=== PATIENT | female | born 2000 | race Caucasian/White ===

== ENCOUNTER → 2023-09-26 09:44 | Outpatient (REF) | payer BC, SELFPAY ==
[2023-09-26 11:11] LABS: % Eosinophils 2.3 % (0-6); % Immature Granulocytes 0.2 % (0-0.5); % Monocytes 5.5 % (1.7-9.3); Absolute Basophils 0.1 10^3/uL (0-0.2); Absolute Eosinophils 0.1 10^3/uL (0-0.7); Absolute Lymphocytes 1.6 10^3/uL (1.2-3.4); Absolute Monocytes 0.3 10^3/uL (0.1-0.6); Hematocrit 39.8 % (37.0-47.0); Hemoglobin 13.7 g/dL (12.0-16.0); Mean Corp Hgb Conc. 34.4 g/dL (33.0-37.0); Mean Corpuscular Hgb 30.5 pg (27.0-31.0); Mean Corpuscular Volume 88.6 fL (81.0-99.0); Mean Platelet Volume 9.9 fL (7.4-10.4); Nucleated Red Blood Cells % 0 %; Platelet Count 220 10^3/uL (130-400); Red Blood Cell Count 4.49 10^6/uL (4.20-5.40); Red Cell Dist. Width 11.9 % (11.5-14.5); White Blood Cell Count 5.1 10^3/uL (4.8-10.8)
[2023-09-26 12:04] LABS: Rubella Positive
[2023-09-26 13:21] LABS: ALT (SGPT) 16 U/L (0-35); AST (SGOT) 31 U/L (14-36); Albumin 4.7 g/dl (3.5-5.0); Alkaline Phosphatase 44 U/L (38-126); Blood Urea Nitrogen 11 mg/dl (7-17); Calcium 9.6 mg/dl (8.4-10.2); Carbon Dioxide 25 mmol/L (22-30); Chloride 104 mmol/L (98-107); Glucose 82 mg/dl (70-99); HDL Cholesterol 73 mg/dl; LDL Cholesterol, Calculated 84 mg/dl; Potassium 4.6 mmol/L (3.5-5.1); Sodium 138 mmol/L (135-145); Total Bilirubin 0.6 mg/dl (0.2-1.3); Total Cholesterol 179 mg/dl (50-199); Total Protein 6.8 g/dl (6.3-8.2); Triglyceride 113 mg/dl (10-149); Very Low Density Lipoprotein 22 mg/dl (0-30); eGFR > 60.00
[2023-09-26 13:50] LABS: Hepatitis B Surface Antigen Negative (Negative)
[2023-09-26 13:52] LABS: TSH Reflex To Free T4 2.66 uIU/ml (0.47-4.68)
== END ==
LOC: REG 09:44
PROVIDERS: ATTENDING PHYSICIAN Internal Medicine
DX: R53.83 Other fatigue (principal); Z00.00 Encounter for general adult medical examination without abnormal findings
CPT/HCPCS: 36415; 80053; 80061; 84443; 85025; 86480; 86735; 86762; 86765; 86787; 87340

== ENCOUNTER → 2023-10-30 13:06 | Outpatient (REF) | payer BC, SELFPAY ==
[2023-10-30 18:53] LABS: Hepatitis B Surface Antibody Negative
== END ==
LOC: REG 13:06
PROVIDERS: ATTENDING PHYSICIAN Internal Medicine
DX: Z01.84 Encounter for antibody response examination (principal)
CPT/HCPCS: 36415; 86706

== ENCOUNTER → 2024-02-06 12:09 | Outpatient (REF) | payer BC, SELFPAY ==
[2024-02-06 12:45] LABS: % Eosinophils 1.7 % (0-6); % Monocytes 5.4 % (1.7-9.3); % Neutrophils 55.9 % (42.2-75.2); Absolute Basophils 0.1 10^3/uL (0-0.2); Absolute Eosinophils 0.1 10^3/uL (0-0.7); Absolute Lymphocytes 1.7 10^3/uL (1.2-3.4); Absolute Monocytes 0.3 10^3/uL (0.1-0.6); Absolute Neutrophils 2.7 10^3/uL (1.4-6.5); Hematocrit 38.8 % (37.0-47.0); Hemoglobin 13.2 g/dL (12.0-16.0); Mean Corpuscular Hgb 29.9 pg (27.0-31.0); Mean Platelet Volume 9.5 fL (7.4-10.4); Nucleated Red Blood Cells % 0 %; Platelet Count 214 10^3/uL (130-400); Red Blood Cell Count 4.41 10^6/uL (4.20-5.40); Red Cell Dist. Width 12.2 % (11.5-14.5); White Blood Cell Count 4.8 10^3/uL (4.8-10.8)
[2024-02-06 14:20] LABS: ALT (SGPT) 16 U/L (0-35); AST (SGOT) 24 U/L (14-36); Albumin 4.7 g/dl (3.5-5.0); Alkaline Phosphatase 29 U/L (38-126); Blood Urea Nitrogen 11 mg/dl (7-17); Calcium 9.3 mg/dl (8.4-10.2); Carbon Dioxide 24 mmol/L (22-30); Chloride 105 mmol/L (98-107); Glucose 88 mg/dl (70-99); Potassium 4.6 mmol/L (3.5-5.1); Sodium 140 mmol/L (135-145); Total Bilirubin 0.7 mg/dl (0.2-1.3); eGFR > 60.00
== END ==
LOC: REG 12:09
PROVIDERS: ATTENDING PHYSICIAN Nurse Practitioner Adult Health; FAMILY PHYSICIAN Internal Medicine
DX: R11.10 Vomiting, unspecified (principal); R19.7 Diarrhea, unspecified
CPT/HCPCS: 36415; 80053; 85025

== ENCOUNTER → 2024-06-15 13:48 | Outpatient (REF) | payer BC, SELFPAY | LOC: RCS 13:48 | PROVIDERS: FAMILY PHYSICIAN Internal Medicine | DX: F90.0 Attention-deficit hyperactivity disorder, predominantly inattentive type (principal) | CPT/HCPCS: 93005 ==

== ENCOUNTER 2024-07-01 09:04 | Emergency (ER) | payer BC, SELFPAY ==
[2024-07-01 09:06] VITALS: BP 124/76
[2024-07-01] MEDS: ZOFRAN 4 MG IV (10:06)
[2024-07-01] MEDS: NSS 1000 IV (10:07)
[2024-07-01 10:10] VITALS: BP 109/72
--- NOTE | 2024-07-01 10:14 | ED.GENMED ---
History of Present Illness
General
Chief Complaint: Abdominal Symptoms
Source: patient
Time Seen by Provider: 07/01/24 09:38
History of Present Illness
History of Present Illness:
23-year-old female presenting to the emergency department for evaluation of persistent nausea and vomiting over the last 12 to 24 hours, while driving to her clinical site had a syncopal event during an episode of emesis which is what prompted her
to come to the ER for further evaluation. Patient does note that for the last few weeks she has also had some loose stool which is not normal but also reports that she was recently started on Effexor, Ritalin and propranolol which she states is
what seems to her prompted all of the GI symptoms. Patient denies any abdominal pain, urinary symptoms, fevers, recent travel, known sick contacts or recent antibiotics. 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
clinicals prior to starting work so it is possible she came into contact with a sick patient. Social history noncontributory otherwise.
Past History
Past History
ED Past Medical History: Psychiatric
ED Past Surgical History: Tonsilectomy
Social History
Tobacco: Non-smoker
Alcohol: Occasional
Drug: Marijuana
Personal: Single
Living: with family
Employment: Student
Review of Systems
Review of Systems
All Other Systems: ROS reviewed and negative except as documented in HPI and ROS
Phy Exam
Physical Exam
Physical Exam:
GENERAL: Alert , in no apparent distress
EYE: clear conjunctiva b/l
HEAD: NCAT
ENT: mmm.
CARDIAC: Regular rate and rhythm .
LUNGS: Clear breath sounds bilaterally, no acute respiratory distress, no wheezes/rales/rhonchi
ABDOMEN: Soft, without focal tenderness, no r/g, no cvat
NEUROLOGICAL: Alert and oriented
SKIN: Warm and dry, skin intact.
MUSCULOSKELETAL: No edema, well perfused.
PSYCH: Normal and appropriate interaction.
Scores
Heart Failure Risk
Heart Failure Risk Score: Not Applicable
Heart Score for Chest Pain Patients
STEMI patient?: Not applicable
Withdrawal Assessment of Alcohol
Withdrawal Assessment Completed?: Not applicable
Course
Orders/Labs/Results
Orders:
Orders
07/01/24 09:11
Electrocardiogram (*1) Urgent
Reason for Study: Chest Pain
EKG- Treatment ONCE
07/01/24 09:52
0.9% Sodium Chloride 1000 ml [Nss] 1,000 ml IV BOLUS
Ondansetron Injectable [Zofran] 4 mg IV NOW STA
Test Result ONCE
07/01/24 10:10
Complete Blood Count/With Diff Urgent
Comprehensive Metabolic Panel Urgent
HCG, Serum Qualitative Screen Urgent
Lipase Urgent
07/01/24 11:33
Urinalysis Reflex To Culture Urgent
Date Specimen was Collected: 07/01/24
Time Specimen was Collected: 11:30
Urine Microscopic Reflex Cult Urgent
Abnormal Lab Results
07/01/24 07/01/24
10:10 11:33
Total Bilirubin 1.6 H mg/dl
(0.2-1.3)
Urine Ketones 3+ A
(Negative)
Urine Bacteria (Reflex) Few A
(Negative)
Urine Albumin (Reflex) 1+ A
(Neg - Trace)
07/01/24 10:10
07/01/24 10:10
Vital Signs
Initial and Last Documented VS:
Initial Vital Signs
Temp Pulse Resp BP Pulse Ox
98.3 F 61 16 124/76 100
07/01/24 09:06 07/01/24 09:06 07/01/24 09:06 07/01/24 09:06 07/01/24 09:06
Last Documented Vital Signs
Temp Pulse Resp BP Pulse Ox
98.3 F 54 12 115/64 99
07/01/24 09:06 07/01/24 11:15 07/01/24 11:15 07/01/24 11:04 07/01/24 11:15
MDM/Problems Addressed
Differential Diagnosis Includes:
Vagal event, orthostasis, dehydration, medication side effects, gastroenteritis, GERD, electrolyte derangement
MDM/Problems Addressed:
23-year-old female presenting to the ER for evaluation of GI upset with loose stool over the last few weeks since starting new medications but over the last 12 to 24 hours has had more nausea and vomiting, had syncopal episode prior to arrival but
states now currently feels quite well. Exam reassuring, abdomen soft and nontender. Patient overall very well-appearing. Will check labs, treat with fluids and Zofran. Reassessment following.
*Pulse Oximetry
Patient hypoxic: no
*EKG
Heart Rate: 63
Rate: normal
Rhythm: sinus arrhythmia
Ischemia: no ischemia
*Electronic Masking System Operator Interpretation
Rate: normal
Rhythm: sinus arrhythmia
*Critical Care Note
Total Time (30-74mins, 75-104mins- exclusive of procedures): Not Applicable
Patient Management
Escalation/DeEscalation of care consider admission/obs:
Patient feeling significantly better following medications and fluids. She feels well enough to be discharged home. Prescription for Zofran sent to pharmacy. Advised brat diet. Stable for discharge and aware of return precautions.
ED Attending Note
-
Portions of this chart may have been created with voice recognition software.� Occasional wrong word or��sound alike� substitutions may have occurred due to the inherent limitations of voice recognition software.
Discharge Plan
Departure
Patient Disposition: Home (Routine Discharge)
Date of Disposition: 07/01/24
Time of Disposition: 11:23
Patient with high blood pressure during this ER visit?: No
Discharge Problem:
Nausea and vomiting, Medication side effect
Instructions: Nausea and Vomiting, Adult (DC)
Prescriptions:
New
ondansetron 4 mg tablet,disintegrating
4 mg PO TIDPRN PRN (Reason: nausea/vomiting) Qty: 10 0RF
Referrals:
Kenyatta Trejo NP [Family Provider] -
Stand Alone Forms: Back to School
Interventions
Interventions:
*Risk Screen - Suicide Last Done: 07/01/24 09:06
*General Assessment Last Done: 07/01/24 09:06
*Neglect/Abuse Screening Last Done: 07/01/24 09:06
*ED- Fall Risk Assessment Last Done: 07/01/24 10:22
*ED COVID-19 Vaccine History Last Done: 07/01/24 10:22
*Nursing Disposition Last Done: 07/01/24 11:45
EK-Gokghc-Xsriidbcxh Assessment Last Done: 07/01/24 10:21
Discharge Date and Time
Discharge Date/Time: 07/01/24 11:46
Print Language: CHILEAN
[2024-07-01 10:21] VITALS: BP 109/72; BMI 19.9
[2024-07-01 10:21] LABS: % Eosinophils 1.7 % (0-6); % Immature Granulocytes 0.3 % (0-0.5); % Lymphocytes 28.8 % (20.5-51.1); % Monocytes 6.7 % (1.7-9.3); % Neutrophils 61.5 % (42.2-75.2); Absolute Basophils 0.1 10^3/uL (0-0.2); Absolute Eosinophils 0.1 10^3/uL (0-0.7); Absolute Lymphocytes 2.1 10^3/uL (1.2-3.4); Absolute Monocytes 0.5 10^3/uL (0.1-0.6); Absolute Neutrophils 4.4 10^3/uL (1.4-6.5); Hematocrit 39.3 % (37.0-47.0); Hemoglobin 13.7 g/dL (12.0-16.0); Mean Corp Hgb Conc. 34.9 g/dL (33.0-37.0); Mean Corpuscular Hgb 30.5 pg (27.0-31.0); Mean Corpuscular Volume 87.5 fL (81.0-99.0); Mean Platelet Volume 9.4 fL (7.4-10.4); Nucleated Red Blood Cells % 0 %; Platelet Count 234 10^3/uL (130-400); Red Blood Cell Count 4.49 10^6/uL (4.20-5.40); Red Cell Dist. Width 12.5 % (11.5-14.5); White Blood Cell Count 7.2 10^3/uL (4.8-10.8)
[2024-07-01 10:38] LABS: HCG, Serum Qualitative Screen Negative
[2024-07-01 10:43] LABS: ALT (SGPT) 18 U/L (0-35); AST (SGOT) 29 U/L (14-36); Albumin 4.8 g/dl (3.5-5.0); Alkaline Phosphatase 50 U/L (38-126); Blood Urea Nitrogen 16 mg/dl (7-17); Calcium 9.9 mg/dl (8.4-10.2); Carbon Dioxide 22 mmol/L (22-30); Chloride 104 mmol/L (98-107); Estimated Creatinine Clearance 121 ml/min; Glucose 79 mg/dl (70-99); Lipase 99 U/L (23-300); Sodium 139 mmol/L (135-145); Total Bilirubin 1.6 mg/dl (0.2-1.3); eGFR > 60.00
[2024-07-01 11:04] VITALS: BP 115/64
[2024-07-01 11:56] LABS: Urine Albumin 1+ (Neg - Trace); Urine Bilirubin Negative (Negative); Urine Character Clear (Clear); Urine Color Yellow; Urine Glucose Negative (Negative); Urine Ketone 3+ (Negative); Urine Leukocyte Negative (Negative); Urine Nitrite Negative (Negative); Urine Occult Blood Negative (Negative); Urine Specific Gravity 1.025 (<1.030); Urine Urobilinogen Negative (Neg - 1+)
[2024-07-01 12:13] LABS: Urine Bacteria Few (Negative); Urine Mucus Moderate; Urine Red Blood Cell 0-2 /HPF (0-2); Urine White Cell 0-2 /HPF (0-5)
== END 2024-07-01 11:46 | disposition home or self-care (01) ==
LOC: EMR 09:04
PROVIDERS: Physician Assistant Medical; EMERGENCY PHYSICIAN Emergency Medicine; FAMILY PHYSICIAN Internal Medicine
DX: R55 Syncope and collapse (principal); R11.2 Nausea with vomiting, unspecified; R19.7 Diarrhea, unspecified; T50.995A Adverse effect of other drugs, medicaments and biological substances, initial encounter
CPT/HCPCS: 99284; 96374; 96361; 80053; 81003; 81015; 83690; 84703; 85025; 93005

== ENCOUNTER → 2024-11-02 11:46 | Outpatient (REF) | payer BC, SELFPAY ==
[2024-11-02 12:28] LABS: Hematocrit 38.8 % (37.0-47.0); Hemoglobin 13.1 g/dL (12.0-16.0); Mean Corp Hgb Conc. 33.8 g/dL (33.0-37.0); Mean Corpuscular Volume 91.7 fL (81.0-99.0); Nucleated Red Blood Cells % 0 %; Platelet Count 216 10^3/uL (130-400); Red Cell Dist. Width 11.8 % (11.5-14.5)
[2024-11-02 12:57] LABS: HCG, Serum Qualitative Screen Negative
[2024-11-02 13:07] LABS: ALT (SGPT) 12 U/L (0-35); AST (SGOT) 19 U/L (14-36); Albumin 4.6 g/dl (3.5-5.0); Alkaline Phosphatase 46 U/L (38-126); Blood Urea Nitrogen 11 mg/dl (7-17); Calcium 10.0 mg/dl (8.4-10.2); Carbon Dioxide 25 mmol/L (22-30); Chloride 106 mmol/L (98-107); Glucose 89 mg/dl (70-99); Potassium 4.3 mmol/L (3.5-5.1); Sodium 137 mmol/L (135-145); Total Protein 6.7 g/dl (6.3-8.2); eGFR > 60.00
== END ==
LOC: REG 11:46
PROVIDERS: ATTENDING PHYSICIAN Nurse Practitioner Adult Health; FAMILY PHYSICIAN Internal Medicine
DX: R51.9 Headache, unspecified (principal); R11.0 Nausea
CPT/HCPCS: 36415; 80053; 84703; 85025

== ENCOUNTER 2025-01-16 15:58 | Emergency (ER) | payer BC, SELFPAY ==
[2025-01-16 16:13] VITALS: BP 113/81
[2025-01-16 16:35] LABS: Hematocrit 39.8 % (37.0-47.0); Hemoglobin 13.1 g/dL (12.0-16.0); Mean Corp Hgb Conc. 32.9 g/dL (33.0-37.0); Mean Corpuscular Volume 90.2 fL (81.0-99.0); Nucleated Red Blood Cells % 0 %; Platelet Count 238 10^3/uL (130-400); Red Cell Dist. Width 11.8 % (11.5-14.5)
[2025-01-16 16:41] LABS: HCG, Serum Qualitative Screen Negative
[2025-01-16 16:50] LABS: ALT (SGPT) 18 U/L (0-35); AST (SGOT) 26 U/L (14-36); Albumin 4.8 g/dl (3.5-5.0); Alkaline Phosphatase 43 U/L (38-126); Blood Urea Nitrogen 11 mg/dl (7-17); Calcium 9.6 mg/dl (8.4-10.2); Carbon Dioxide 26 mmol/L (22-30); Chloride 105 mmol/L (98-107); Glucose 103 mg/dl (70-99); Lipase 166 U/L (23-300); Potassium 4.0 mmol/L (3.5-5.1); Sodium 137 mmol/L (135-145); Total Protein 7.1 g/dl (6.3-8.2); eGFR > 60.00
--- NOTE | 2025-01-16 17:25 | ED.GENMED ---
History of Present Illness
<Lynnette Lino MD, Resident - Last Filed: 01/17/25 00:21>
General
Chief Complaint: Rectal Bleeding
Source: patient
Time Seen by Provider: 01/16/25 16:33
History of Present Illness
History of Present Illness:
24-year-old female with past medical history of anxiety/depression presents to the ER for bloody diarrhea. She has been having on and off diarrhea for the past month. This , the diarrhea increased to 3-4 times a day with associated lower
abdominal cramping. This afternoon around 1:00, she had bloody diarrhea. The blood was bright red. She could not tell the volume. It was not dripping afterward. She denies any anal pain or itching. She does endorse lower abdominal cramping over
the last 4 days. The pain is different than menstrual cramping. She denies any nausea, vomiting over the last few days however she has had 1 episode of nausea with vomiting in the last month. She denies any fevers, chills, sore throat, runny
nose, recent sick contacts, recent antibiotic use, recent travel, recent exposure to dirty water, lightheadedness or dizziness. She has had an itchy rash that developed on her back over the last month. She has dealt with on and off diarrhea in the
past in high school but never bloody. She denies any weight loss. Her cousin has Crohn's disease.
She does note her last menstrual period was November 11. She took a test and it was negative. She also endorses suicidal ideation over the past few days however denies any plans and states she would never actually hurt herself. She was
previously on medication for mental health however currently not on any.
<Kenyatta Benson MD - Last Filed: 01/16/25 18:11>
General
Exam Limitations: none
Nursing documentation reviewed up to this point in time: agreed with
Past History
<Lynnette Lino MD, Resident - Last Filed: 01/17/25 00:21>
Past History
ED Past Medical History: Psychiatric
ED Past Surgical History: Tonsilectomy
Social History
Tobacco: Vaping
Alcohol: Occasional
Drug: Marijuana
Personal: Single
Living: with family
Employment: Student
Family History
Family History: Other (Cousin Chron's, sister diverticulitis )
Review of Systems
<Lynnette Lino MD, Resident - Last Filed: 01/17/25 00:21>
Review of Systems
Allergies reviewed?: Yes
Constitutional: Reports no symptoms
EENT: Reports no symptoms
Respiratory: Reports no symptoms
Cardiac: Reports no symptoms
ABD/GI: Reports abdominal pain, diarrhea and bloody stools
: Reports no symptoms
Musculoskeletal: Reports no symptoms
Skin: Reports no symptoms
Neurological: Reports no symptoms
Endocrine: Reports no symptoms
<Kenyatta Benson MD - Last Filed: 01/16/25 18:11>
Review of Systems
Psychiatric: Reports depression, anxiety and suicidal (Passive thoughts but no active thoughts or plan)
Phy Exam
<Lynnette Lino MD, Resident - Last Filed: 01/17/25 00:21>
Physical Exam
Physical Exam:
General: Appears to have depressed mood but nontoxic
Head: Atraumatic
ENT: No pharyngeal erythema or lymphadenopathy
Cardiac: Regular S1-S2, no murmurs
Respiratory: Clear breath sounds bilaterally
Abdominal: Tenderness with palpation in right lower and left lower quadrant. No rebound tenderness, no guarding or rigidity. Normal bowel sounds in all 4 quadrants. Nondistended.
Rectal: No external hemorrhoids, heme-occult (-).
Extremities: No peripheral edema
Skin: Clusters of small, itchy papules spread out over back.
Psychiatric Exam
Psychiatric Exam: anxious, depressed and suicidal
Course
<Lynnette Lino MD, Resident - Last Filed: 01/17/25 00:21>
Orders/Labs/Results
Orders:
Orders
01/16/25 16:18
Test Result ONCE
01/16/25 16:25
Type And Crossmatch [Type+Screen] Urgent
C-Reactive Protein Urgent
Comment: ADD ON
Complete Blood Count/With Diff Urgent
Comprehensive Metabolic Panel Urgent
Erythrocyte Sed Rate Urgent
Comment: ADD ON
HCG, Serum Qualitative Screen Urgent
Lactic Acid Urgent
Lipase Urgent
01/16/25 17:22
Add On- LAB Urgent
Tests Added?: ESR, CRP
01/16/25 17:23
CT Abd/pel W Iv And Oral Contr Urgent
Comment:
Reason For Exam: diarrhea 1 month, low ab pain, blood
Iohexol [Omnipaque] See Protocol PO NOW STA
01/16/25 17:24
Crisis Consult Urgent
Reason for Consult: depression
01/16/25 18:03
Celiac Comprehensive Panel Urgent
Abnormal Lab Results
01/16/25
16:25
MCHC 32.9 L g/dL
(33.0-37.0)
Glucose 103 H mg/dl
(70-99)
Total Bilirubin 1.5 H mg/dl
(0.2-1.3)
01/16/25 16:25
01/16/25 16:25
Vital Signs
Initial and Last Documented VS:
Initial Vital Signs
Temp Pulse Resp BP Pulse Ox
98.9 F 77 18 113/81 98
01/16/25 16:13 01/16/25 16:13 01/16/25 16:13 01/16/25 16:13 01/16/25 16:13
Last Documented Vital Signs
Temp Pulse Resp BP Pulse Ox
98.9 F 55 16 106/52 100
01/16/25 16:13 01/16/25 21:23 01/16/25 21:23 01/16/25 21:23 01/16/25 21:23
<Kenyatta Benson MD - Last Filed: 01/16/25 18:11>
Orders/Labs/Results
Orders:
Orders
01/16/25 16:18
Test Result ONCE
01/16/25 16:25
Type And Crossmatch [Type+Screen] Urgent
C-Reactive Protein Urgent
Comment: ADD ON
Complete Blood Count/With Diff Urgent
Comprehensive Metabolic Panel Urgent
Erythrocyte Sed Rate Urgent
Comment: ADD ON
HCG, Serum Qualitative Screen Urgent
Lactic Acid Urgent
Lipase Urgent
01/16/25 17:22
Add On- LAB Urgent
Tests Added?: ESR, CRP
01/16/25 17:23
CT Abd/pel W Iv And Oral Contr Urgent
Comment:
Reason For Exam: diarrhea 1 month, low ab pain, blood
Iohexol [Omnipaque] See Protocol PO NOW STA
01/16/25 17:24
Crisis Consult Urgent
Reason for Consult: depression
01/16/25 18:03
Celiac Comprehensive Panel Urgent
Abnormal Lab Results
01/16/25
16:25
MCHC 32.9 L g/dL
(33.0-37.0)
Glucose 103 H mg/dl
(70-99)
Total Bilirubin 1.5 H mg/dl
(0.2-1.3)
01/16/25 16:25
01/16/25 16:25
Vital Signs
Initial and Last Documented VS:
Initial Vital Signs
Temp Pulse Resp BP Pulse Ox
98.9 F 77 18 113/81 98
01/16/25 16:13 01/16/25 16:13 01/16/25 16:13 01/16/25 16:13 01/16/25 16:13
Last Documented Vital Signs
Temp Pulse Resp BP Pulse Ox
98.9 F 55 16 106/52 100
01/16/25 16:13 01/16/25 21:23 01/16/25 21:23 01/16/25 21:23 01/16/25 21:23
<Lynnette Lino MD, Resident - Last Filed: 01/17/25 00:21>
MDM/Problems Addressed
Differential Diagnosis Includes:
Irritable bowel disease, inflammatory bowel disease, celiac's, diverticulitis, viral colitis, bacterial colitis, allergic reaction,
MDM/Problems Addressed:
CT abdomen pelvis as diarrhea has been ongoing for a month for possible colitis. Include celiac panel, ESR, CRP to evaluate for inflammatory bowel disease or celiac's. test is negative. WBC is 6.5 which is reassuring there is no acute
infection. Hemoglobin is stable at 13.1 and vitals are stable which is reassuring for no acute bleed. T. bili is 1.5, other LFTs are within normal limits. She did have an elevated T. bili of 1.6 on a 07/01/2024 when she was in the hospital for GI
upset. She was ultimately discharged because she felt well enough to go home.
Crisis consulted for endorsing suicidal ideation. She has no plan of action. Father is the room with her and will stay with her for the duration of her stay. One-to-one not felt to be required at this time due to this. CT revealed mild periportal
edema which is nonspecific although can be seen with IV rehydration. Consider correlation with lab values for possible hepatitis.
Considering no acute etiology noted on CT and lab values within normal limits, will discharge patient with recommendations to follow-up with GI for further evaluation. Patient was unable to give a stool sample during this time.
Crisis also came and say the patient. They established a safety plan with the patient and gave her outpatient resources for intensive outpatient therapy. She said it was helpful.
Chronic conditions affecting care: Psychiatric illness
Acute Exacerbation and/or Progression of Chronic Illness: Psychiatric illness
<Lynnette Lino MD, Resident - Last Filed: 01/17/25 00:21>
*Pulse Oximetry
SaO2: 98
Oxygen Mode of Delivery: Room air
Patient hypoxic: no
*Critical Care Note
Total Time (30-74mins, 75-104mins- exclusive of procedures): Not Applicable
Data Reviewed
Review of Other/Old Records Reveals: Labs (T. bili 1.6 on 07/01/2024) and Radiology Studies (Thyroid ultrasound 11/24/2020 no solid thyroid nodules)
Source: patient and records
ED Attending Note
<Lynnette Lino MD, Resident - Last Filed: 01/17/25 00:21>
-
Portions of this chart may have been created with voice recognition software.� Occasional wrong word or��sound alike� substitutions may have occurred due to the inherent limitations of voice recognition software.
<Kenyatta Benson MD - Last Filed: 01/16/25 18:11>
ED Attending Note
I performed a history and physical exam of patient and discussed management with resident, I reviewed resident's note and agree with documented findings and plan of care.: Yes
ED Attending Note:
Patient appears well perfused on exam and comfortable. Patient is breathing comfortably. Abdomen is nondistended.
6:10 PM I spoke to Kumar birch who reports that they established a safety plan with the patient and gave her outpatient resources for intensive outpatient therapy
Discharge Plan
Departure
Patient Disposition: Home (Routine Discharge)
Date of Disposition: 01/16/25
Time of Disposition: 21:17
Patient with high blood pressure during this ER visit?: No
Discharge Problem:
Bloody diarrhea, Abdominal pain
Instructions: Abdominal Pain
Prescriptions:
No Action
ondansetron 4 mg tablet,disintegrating
4 mg PO TIDPRN PRN (Reason: nausea/vomiting) Qty: 10 0RF
Referrals:
Kenyatta Trejo, ENVIRONMENTAL PROTECTION INSPECTOR [Family Provider, Internal Medicine]
Rossy Thompson DO [Active, Gastroenterology]
Activity Restrictions/Additional Instructions:
Please follow up with GI for additional evaluation. If symptoms significantly worsen, please reach out to your PCP or come back to the ER.
Interventions
Interventions:
*Risk Screen - Suicide Last Done: 01/16/25 16:16
*General Assessment Last Done: 01/16/25 16:13
*Neglect/Abuse Screening Last Done: 01/16/25 16:27
*ED COVID-19 Vaccine History Last Done: 01/16/25 16:13
*ED Influenza Vaccine History Last Done: 01/16/25 16:13
*Nursing Disposition Last Done: 01/16/25 21:24
SX-Mayssl-Lflmplrfnp Assessment Last Done: 01/16/25 18:09
ED- Cardiac Assessment Last Done: 01/16/25 18:09
ED- Pulmonary Assessment Last Done: 01/16/25 18:09
Discharge Date and Time
Discharge Date/Time: 01/16/25 21:25
Print Language: TRINIDADIAN
[2025-01-16] MEDS: OMNIPAQUE 50 ML PO (17:40)
[2025-01-16 18:35] LABS: C-Reactive Protein < 5.00 mg/L (0.0-10.00)
[2025-01-16 21:23] VITALS: BP 106/52
== END 2025-01-16 21:25 | disposition home or self-care (01) ==
LOC: EMR 15:58
PROVIDERS: Student in an Organized Health Care Education/Training Program; EMERGENCY PHYSICIAN Emergency Medicine; FAMILY PHYSICIAN Internal Medicine
DX: R19.7 Diarrhea, unspecified (principal); R10.31 Right lower quadrant pain; R45.851 Suicidal ideations; F41.9 Anxiety disorder, unspecified; F32.A Depression, unspecified; F17.290 Nicotine dependence, other tobacco product, uncomplicated
CPT/HCPCS: 99284; 74177; 80053; 82784; 83516; 83605; 83690; 84703; 85025; 85652; 86140; 86231; 86850; 86900; 86901; Q9967